=== PATIENT | female | born 1950 | race Caucasian/White ===

== ENCOUNTER 2023-08-05 07:56 | Inpatient (IN) | payer MEDICARE, BC ==
[2023-08-05] MEDS ORDERED: Lactated Ringers 1,000 ML IV ONE (08:13)
[2023-08-05] MEDS ORDERED: Magnesium Sulfate/Water 2 GM in Premix Bag 1 BAG IV ONE (08:13)
[2023-08-05 08:44] LABS: BASOPHILS ABSOLUTE AUTO 0.1 K/mm3 (0.0-0.2); BASOPHILS PERCENT AUTO 1.1 % (0.0-1.0); EOSINOPHILS ABSOLUTE AUTO 0.4 K/mm3 (0.0-0.4); EOSINOPHILS PERCENT AUTO 6.5 % (0.0-6.0); HEMATOCRIT 40.3 % (37.0-47.0); HEMOGLOBIN 13.4 gm/dl (12.0-16.0); IMMATURE GRAN ABSOLUTE AUTO 0.01 K/mm3 (0.00-0.05); IMMATURE GRAN PERCENT AUTO 0.2 % (0.0-0.4); LYMPHOCYTES PERCENT AUTO 36.9 % (24.0-44.0); MEAN CORPUSCULAR HEMOGLOBIN 31.4 pg (28.0-32.0); MEAN CORPUSCULAR HGB CONC 33.3 g/dl (32.0-36.0); MEAN CORPUSCULAR VOLUME 94.4 fl (83.0-99.0); MEAN PLATELET VOLUME 9.3 fl (9.4-12.3); MONOCYTES ABSOLUTE AUTO 0.5 K/mm3 (0.0-0.8); MONOCYTES PERCENT AUTO 8.8 % (0.0-8.0); NEUTROPHILS ABSOLUTE AUTO 2.5 K/mm3 (1.8-7.7); NEUTROPHILS PERCENT AUTO 46.5 % (41.0-71.0); PLATELET COUNT,PLT 205 K/mm3 (150-400); RED BLOOD CELL COUNT 4.27 M/mm3 (4.10-5.30); WHITE BLOOD CELL COUNT,WBC 5.37 K/mm3 (3.9-11.3)
[2023-08-05 08:47] LABS: A/G RATIO 0.9 (1-2); ALBUMIN 3.4 g/dl (3.4-5.0); ANION GAP 11.7 (5-15); BILIRUBIN TOTAL 0.5 mg/dL (0.2-1.0); EST CRCL DRUG DOSING (CG) 48.3 mL/min; MAGNESIUM 2.1 mg/dL (1.8-2.4); POTASSIUM,K 3.7 mEq/L (3.5-5.1)
[2023-08-05] MEDS ORDERED: Aspirin 81 MG Tab.Chew PO SCH (09:00)
[2023-08-05 09:14] LABS: INR 0.99; PROTHROMBIN TIME 10.6 SECONDS (9.7-12.0)
[2023-08-05] MEDS ORDERED: Diltiazem 25 MG/5 ML SDV IVPUSH ONE (10:11)
[2023-08-05] MEDS ORDERED: Diltiazem 125 MG in Sodium Chloride 0.9% 100 ML IV SCH (10:15)
[2023-08-05] MEDS ORDERED: Ondansetron 4 MG/2 ML SDV IV PRN (12:10)
[2023-08-05] MEDS ORDERED: Acetaminophen 325 MG Tab PO PRN (12:10)
[2023-08-05] MEDS ORDERED: Docusate Sodium 100 MG Cap PO PRN (12:10)
[2023-08-05] MEDS ORDERED: Diltiazem IR 60 MG Tab PO SCH (12:15)
[2023-08-05] MEDS ORDERED: Apixaban 5 MG Tab PO SCH (12:15)
[2023-08-05] MEDS ORDERED: Multivitamin Tab PO SCH (12:30)
[2023-08-05] MEDS ORDERED: Pantoprazole 40 MG Tab.CR PO SCH (12:30)
== END 2023-08-05 15:18 | disposition home or self-care (01) | DRG 310 ==
LOC: JD.ED 07:56 → JD.ICU 11:37
PROVIDERS: ADMIT Hospitalist; ATTEND Hospitalist
DX: I48.91 Unspecified atrial fibrillation (principal); R06.02 Shortness of breath; M19.90 Unspecified osteoarthritis, unspecified site; Z96.659 Presence of unspecified artificial knee joint; I89.0 Lymphedema, not elsewhere classified; M79.89 Other specified soft tissue disorders; R00.2 Palpitations; Z90.710 Acquired absence of both cervix and uterus; Z85.42 Personal history of malignant neoplasm of other parts of uterus; R42 Dizziness and giddiness; Z88.1 Allergy status to other antibiotic agents; Z88.8 Allergy status to other drugs, medicaments and biological substances; Z98.49 Cataract extraction status, unspecified eye; Z98.890 Other specified postprocedural states; Z92.3 Personal history of irradiation; E86.0 Dehydration; K21.9 Gastro-esophageal reflux disease without esophagitis; Z79.899 Other long term (current) drug therapy; Z98.84 Bariatric surgery status
CPT/HCPCS: 36415; 71045; 80053; 83690; 83735; 84443; 84484; 85025; 85610; A9270; J3475; J3490; J7120; 93005

== ENCOUNTER 2024-05-18 06:45 | Day surgery (SDC) | payer MEDICARE, BC ==
[~2024-05-18 06:45] MED LIST: Sodium Chloride 0.9% 10 ML Syringe FLUSH PRN
[2024-05-18] MEDS ORDERED: Midazolam 1 MG/ML 2 ML SDV ONE (06:52)
[2024-05-18] MEDS ORDERED: Propofol 200 MG/20 ML SDV ONE (06:52)
[2024-05-18] MEDS ORDERED: Lactated Ringers 1,000 ML ONE (06:55)
[2024-05-18] MEDS ORDERED: ceFAZolin 2 GM Vial ONE (06:56)
[2024-05-18] MEDS: Lactated Ringers 1,000 ML IV SCH (07:00)
[2024-05-18] MEDS ORDERED: EPINEPHrine 1 MG/ML SDV ONE (07:25)
[2024-05-18] MEDS ORDERED: Ropivacaine 0.5% 5 MG/ML 30 ML SDV ONE (07:25)
[2024-05-18] MEDS: Acetaminophen 325 MG Tab PO SCH (07:35)
[2024-05-18] MEDS: oxyCODONE ER 10 MG TAB.ER PO SCH (07:35)
[2024-05-18] MEDS: Pregabalin 25 MG Cap PO SCH (07:35)
[2024-05-18] MEDS ORDERED: Lidocaine 1% PF 2 ML SDV ONE (08:30)
[2024-05-18] MEDS ORDERED: fentaNYL 100 MCG/2 ML SDV ONE ×2 (08:39→09:02)
[2024-05-18] MEDS: Vancomycin 1 GM SDV ONE (09:03)
[2024-05-18] MEDS ORDERED: Dexamethasone 4 MG/ML 5 ML MDV ONE (09:03)
[2024-05-18] MEDS ORDERED: fentaNYL 100 MCG/2 ML SDV IVPUSH PRN (09:04)
[2024-05-18] MEDS ORDERED: Ondansetron 4 MG/2 ML SDV ONE (09:09)
[2024-05-18] MEDS: Morphine 8 MG, EPINEPHrine 0.3 MG, Cefuroxime 750 MG, Sodium Chloride 0.9% 7.9 ML PRN (09:24)
[2024-05-18] MEDS: Tranexamic Acid 1,000 MG/10 ML Vial ONE (09:30)
[2024-05-18] MEDS: HYDROmorphone 0.5 MG/0.5 ML Syringe IVPUSH PRN (10:15)
[2024-05-18] MEDS: oxyCODONE 5 MG Tab PO PRN ×2 (10:50→21:44)
[2024-05-18] MEDS: Ondansetron 4 MG/2 ML SDV IVPUSH PRN (10:50)
[2024-05-18] MEDS: Sodium Chloride 0.9% 10 ML Syringe FLUSH SCH (18:36)
[2024-05-18] MEDS: Ondansetron 4 MG/2 ML SDV IVPUSH ONE (21:44)
== END 2024-05-19 14:25 | disposition home or self-care (01) ==
LOC: JD.SDS 06:45 → JD.MS 18:45 → JD.SDS 05-19 14:25
PROVIDERS: ATTEND Orthopaedic Surgery
DX: M17.11 Unilateral primary osteoarthritis, right knee (principal); K21.9 Gastro-esophageal reflux disease without esophagitis; M81.0 Age-related osteoporosis without current pathological fracture; I10 Essential (primary) hypertension; E78.00 Pure hypercholesterolemia, unspecified; F41.9 Anxiety disorder, unspecified; I48.0 Paroxysmal atrial fibrillation; Z79.01 Long term (current) use of anticoagulants; Z79.899 Other long term (current) drug therapy; Z88.1 Allergy status to other antibiotic agents
CPT/HCPCS: 0055T; 27447; 64447; 73560; 94761; 97110; 97161; A9270; C1713; C1776; J0171; J0690; J0697; J1100; J1170; J2250; J2270; J2405; J2704; J2795; J3010; J3370; J3490; J7120; 01402; 99140